=== PATIENT | female | born 1940 | race African-American/Black ===

== ENCOUNTER → 2018-06-26 | Outpatient (CLI) | payer MEDICARE, MEDICAID ==
[~2018-06-26] MED LIST: ASPI-1079 PO; CARV3.1242 PO; CEPH-569 PO; CLOP75TA33 PO; ENOX100D3 SQ; HYDR-3927 GT; LIPITOR; LOSA1TAB34 PO; METF-414 PO; METO1TAB24 PO; SITA100T11 PO; TRIA1TAB5 PO; WARF7.5T22 PO; [UNRECOGNIZED DRUG - CODE] MC
== END | disposition home or self-care (01) ==
LOC: CARD 08:31
PROVIDERS: ATTEND Psychiatry & Neurology Neurology
DX: R20.2 Paresthesia of skin (principal); R26.89 Other abnormalities of gait and mobility